=== PATIENT | female | born 1990 | race Caucasian/White ===

== ENCOUNTER 2016-06-25 20:10 | Emergency (ER) | payer MEDICAID ==
[~2016-06-25] VITALS: Ht 167.6 cm; Wt 72.1 kg
[2016-06-25 20:10] VITALS: BP 138/92; PULSE 113; RESP 17; TEMP 98.2; O2SAT 100
--- NOTE | 2016-06-25 20:10 | NUR ---
Patient to ER bed 7 to gown for evaluation. Side rails up. Report given to Meghan FINNEY.
--- NOTE | 2016-06-25 20:15 | NUR ---
DR. MILLS AT BEDSIDE EXAMINING THE PT.
--- NOTE | 2016-06-25 20:20 | NUR ---
PT. TO ER FOR LOWER BACK AND PELVIC PAIN STATES 11 WEEKS , STATES THAT SHE WANTS TO MAKE SURE "THERE IS NOTHING TO WORRY ABOUT" PAIN 08/02
[2016-06-25] MEDS ORDERED: NACL 0.9% 1,000 ML IV ONE (20:30)
--- NOTE | 2016-06-25 20:30 | NUR ---
# 22 gauge angiocath placed to LH. Use of asceptic technique. Opsite placed over site. Blood return noted. Flushed with 10 cc of normal saline. No evidence of infiltration noted. Patient tolerated well.
[2016-06-25 20:37] LABS: BILIRUBIN,URINE NEGATIVE (NEGATIVE); CLARITY/URINE CLEAR (CLEAR); COLOR,URINE YELLOW (YELLOW); GLUCOSE,URINE TRACE (NEGATIVE); KETONES,URINE NEGATIVE (NEGATIVE); LEUKOCYTE ESTERASE ,URINE NEGATIVE (NEGATIVE); NITRITE, URINE NEGATIVE (NEGATIVE); PROTEIN URINE NEGATIVE (NEGATIVE); UROBILINOGEN,URINE 0.2 (0.2-1.0)
[2016-06-25 21:11] LABS: BASOPHILS % (AUTO) 0.3 % (0.0-2.0); EOSINOPHILS # (AUTO) 0.2 K/uL (0.0-0.4); EOSINOPHILS % (AUTO) 1.9 % (0.0-4.0); HEMATOCRIT 35.2 % (36-48); HEMOGLOBIN 12.6 g/dL (12.0-16.0); LYMPHOCYTES # (AUTO) 4.1 K/uL (1.0-5.5); LYMPHOCYTES % (AUTO) 32.8 % (20.5-51.5); MEAN CORPUSCULAR HEMOGLOBIN 30 pg (27-31); MEAN CORPUSCULAR HGB CONC 36 % (32-36); MEAN CORPUSCULAR VOLUME 84 fL (79.0-98.0); MONOCYTES # (AUTO) 0.8 K/uL (0.0-1.0); MONOCYTES % (AUTO) 6.1 % (1.7-9.3); NEUTROPHILS # (AUTO) 7.4 K/uL (1.8-7.7); NEUTROPHILS % (AUTO) 58.9 % (40.0-70.0); PLATELET COUNT (AUTO) 254 K/uL (130-430); RED BLOOD CELL COUNT(AUTO) 4.18 MIL/uL (4.2-6.2); RED CELL DISTRIBUTION WIDTH 12.4 % (9.0-15.0); WHITE BLOOD COUNT (AUTO) 12.5 K/uL (4.8-10.8)
[2016-06-25 21:16] LABS: BLOOD, URINE TRACE (NEGATIVE)
[2016-06-25 21:21] LABS: BACTERIA,URINE FEW /HPF (None Seen); RBC,URINE NONE SEEN /HPF (0-3); WBC,URINE 0-3 /HPF (0-3)
[2016-06-25 21:22] LABS: CALCIUM 9.2 mg/dL (8.4-11.0); CREATININE 0.66 mg/dL (0.55-1.30); POTASSIUM 3.5 mmol/L (3.5-5.1)
[2016-06-25 21:22] LABS: MUCUS,URINE None Seen /LPF (None Seen)
[2016-06-25 21:48] LABS: ALBUMIN 3.7 g/dL (3.4-4.8); TOTAL BILIRUBIN 0.4 mg/dL (0.0-1.0); TOTAL PROTEIN, SERUM 7.5 g/dL (6.4-8.3)
--- NOTE | 2016-06-25 23:15 | NUR ---
Pt in bed, denies distress. Will continue to monitor
[2016-06-26 00:30] VITALS: BP 132/87; PULSE 92; RESP 17; TEMP 98.2; O2SAT 99
--- NOTE | 2016-06-26 00:30 | NUR ---
Patient given written and verbal discharge instructions and verbalizes understanding. ER MD Gunn discussed with patient the results and treatment provided. Patient in stable condition. ID arm band removed. IV catheter removed intact and dressing applied, no active bleeding. Rx of tylenol given. Patient educated on pain management and to follow up with PMD. Pain Scale 0/10 Opportunity for questions provided and answered.
== END 2016-06-26 00:30 | disposition home or self-care (01) ==
LOC: SED 20:10
DX: O03.9 Complete or unspecified spontaneous abortion without complication (principal); Z3A.11 11 weeks gestation of pregnancy
CPT/HCPCS: 36415; 76801; 76817; 80053; 81000; 81025; 84702; 85025; 86901; 96360; 99285; J7030